=== PATIENT | male | born 1950 | race Caucasian/White ===

== ENCOUNTER 2017-12-23 17:52 | Emergency (ER) | payer OTHER ==
[~2017-12-23] VITALS: Ht 170.2 cm; Wt 81.6 kg
[2017-12-23 18:07] VITALS: Ht 170.2 cm; Wt 81.6 kg
[2017-12-23 18:54] LABS: PLATELET COUNT 228 x10^3mcL (130-400); RED CELL DISTRIBUTION WIDTH 13.7 % (11.5-14.5)
[2017-12-23 19:03] LABS: CALCIUM 9.7 mg/dL (8.5-10.1); CARBON DIOXIDE 17.9 mmol/L (21-32); CREATININE SERUM 2.2 mg/dL (0.7-1.3)
[2017-12-23 19:08] LABS: ALBUMIN 4.3 g/dL (3.4-5.0); BILIRUBIN TOTAL 0.68 mg/dL (0.20-1.00)
[2017-12-23 22:34] VITALS: BP 117/52
== END 2017-12-23 22:34 | disposition short-term general hospital (02) ==
LOC: ED 17:52
PROVIDERS: Emergency Medicine
DX: I16.9 Hypertensive crisis, unspecified (principal); R10.32 Left lower quadrant pain; Z88.6 Allergy status to analgesic agent; J45.909 Unspecified asthma, uncomplicated; E78.00 Pure hypercholesterolemia, unspecified; K21.9 Gastro-esophageal reflux disease without esophagitis
CPT/HCPCS: 83880; J2060; J2270; J3490; J7030; Q0092; Q0162